=== PATIENT | female | born 1990 | race Caucasian/White ===

== ENCOUNTER → 2021-03-17 | Outpatient (CLI) | payer OTHER | LOC: COL.RAD 08:29 | DX: S83.511A Sprain of anterior cruciate ligament of right knee, initial encounter (principal) ==

== ENCOUNTER → 2024-01-06 | Outpatient (CLI) | payer OTHER | LOC: COL.RAD 12:34 | DX: Q61.3 Polycystic kidney, unspecified (principal); I67.2 Cerebral atherosclerosis ==